=== PATIENT | female | born 1985 | race African-American/Black ===

== ENCOUNTER 2017-02-02 16:10 | Emergency (ER) | payer MEDICAID, OTHER ==
--- NOTE | 2017-02-02 16:59 | PD ---
HPI Chief Complaint Elevated blood pressure Date Seen: Feb 02, 2017 Time Seen: 16:45 Travel History International Travel<30 Days: No Contact w/Intl Traveler<30Days: No Known Affected Area: No History of Present Illness HPI Patient is a 32 year old female delivered vaginally she reports about 12 days ago at [facility] presents today following a visit to clinic where she had elevated blood pressure in the 140s/80s. She receives care from Mulu Yang. She does not have any particular complaints. She does endorse a mild headache beginning yesterday. She denies any visual changes, RUQ pain, lower extremity swelling. She states she and baby have been doing well at home. She does admit to some symptoms of depression beginning during the and occurring now. She does not take any medicine for her depression. She is otherwise without complaints or concerns. She denies any previous history of hypertension in her previous pregnancies or hypertension prior to this instance. Para: 2 : 3 Miscarriage: 1 History Past Medical History Narrative Medical Depression beginning during this past Obstetric History Obstetric History One miscarriage Two uncomplicated vaginal deliveries she reports at term Past Surgical History Surgical History: No Previous Surgery Family History Narrative Family History Mother with chronic hypertension Social History Alcohol Use: No Tobacco Use: No Substance Abuse: No Allergies-Medications (Allergen,Severity, Reaction): Coded Allergies: No Known Allergies (Unverified , 02/02/17) Review of Systems Except as stated in HPI: all other systems reviewed are Neg Physical Exam Narrative GENERAL: Well-nourished, well-developed patient. SKIN: Warm and dry. HEAD: Normocephalic and atraumatic. EYES: No scleral icterus. No injection or drainage. ENT: No nasal drainage noted. Mucous membranes pink. Airway patent. NECK: Supple, trachea midline. No JVD. CARDIOVASCULAR: Regular rate and rhythm without murmurs, gallops, or rubs. RESPIRATORY: Breath sounds equal bilaterally. No accessory muscle use. EXTREMITIES: No cyanosis or edema. BACK: Nontender without obvious deformity. NEUROLOGICAL: Awake and alert. Motor and sensory grossly within normal limits. Normal speech. Data Data Vital Signs Reviewed: Yes [facility] Medical Record Reviewed: Yes Plan Patient is a 32 year old female delivered vaginally she reports about 12 days ago at [facility] presented to OB ED following a visit to clinic where she had elevated blood pressure in the 140s/80s. 1. Hypertension - BP as high as 150/79, most recent BP 127/75 - CBC unremarkable - CMP unremarkable - UA negative for protein; uric acid mildly elevated at 6.7 - Counseled patient regarding the need for follow up of depression and to maintain stress at home - Advised her to follow up with her OB provider Mulu Yang for further monitoring of her blood pressure and management of depression dw Dr. Tony Diagnosis Diagnosis: Primary Impression: hypertension Disposition: 01 DISCHARGE HOME Condition: Stable Scripts Sulfamethoxazole-Trimethoprim (Bactrim DS)800-160 Mg Tab1 Tab PO BID #6 TAB Ref 0 Prov:Siva Kent MD R1 02/02/17 Siva Kent MD R1 Feb 02, 2017 16:59
[2017-02-02 17:00] VITALS: BP 127/75; PULSE 53
[2017-02-02 17:13] LABS: HEMATOCRIT 39.2 % (35.0-46.0); MEAN CELL VOLUME 89.1 FL (80.0-100.0); MEAN CORPUSCULAR HGB CONC 32.5 % (32.0-36.0); PLATELET COUNT 265 TH/MM3 (150-450); RED CELL DISTRIBUTION WIDTH 13.5 % (11.6-17.2); REVIEW FLAG FINAL; WHITE BLOOD COUNT 11.3 TH/MM3 (4.0-11.0)
[2017-02-02 17:31] LABS: ANION GAP 8 MEQ/L (5-15); AST (GOT) 23 U/L (15-37); BICARBONATE 26.5 MEQ/L (21.0-32.0); BLOOD UREA NITROGEN 11 MG/DL (7-18); CHLORIDE 108 MEQ/L (98-107); GLOMERULAR FILTRATION RATE 79 ML/MIN (>89); POTASSIUM 4.1 MEQ/L (3.5-5.1); SODIUM (NA) 142 MEQ/L (136-145)
[2017-02-02 17:32] LABS: BACTERIA, URINE OCC /hpf; BLOOD, URINE MOD (NEG); GLUCOSE,URINE NEG (NEG); KETONE, URINE NEG (NEG); NITRITE,URINE NEG (NEG); SQUAMOUS EPITHELIAL CELL URINE 1 /hpf (0-5); URINE COLOR LIGHT-YELLOW (YELLW/STRAW)
[2017-02-02 17:33] LABS: COMMENT (UR) CULTURE INDICATED; CULTURE IF INDICATED CULTURE INDICATED
[2017-02-02 17:34] LABS: ALKALINE PHOSPHATASE 115 U/L (45-117); ALT (GPT) 22 U/L (10-53); TOTAL BILIRUBIN ADULT 0.3 MG/DL (0.2-1.0)
[2017-02-02] MEDS ORDERED: BACT800T5 PO (17:35)
--- NOTE | 2017-02-02 17:42 | PD ---
History of Present Illness Date Seen: Feb 02, 2017 Time Seen: 17:10 History of Present Illness 32 y/o BF P2 who is 12 d delivering at [facility] ER , she was seen by Mulu Yang's clinic today and sent over for HTN , she had no HTN while . BP here all WNL ., UA neg protein , PIH lab all normal. She has had a slight QUIROGA resolved now. Plan to D/C home to bedrest as much as possible , low salt diet , F/U with her provider as scheduled , she was seen with the [facility] med resident and agree with his eval & plan Yemi Tony II, MD Feb 02, 2017 17:42
== END 2017-02-02 17:40 | disposition home or self-care (01) ==
LOC: HOBED 16:10
DX: O16.5 Unspecified maternal hypertension, complicating the puerperium (principal); O90.89 Other complications of the puerperium, not elsewhere classified; F32.9 Major depressive disorder, single episode, unspecified
CPT/HCPCS: 80053; 81001; 84550; 85027; 87086; 99284